=== PATIENT | male | born 1995 | race Caucasian/White ===

== ENCOUNTER → 2017-10-02 09:13 | Outpatient (CLI) | payer OTHER, SELFPAY ==
[2017-10-02 13:38] LABS: Free T4 (Free Thyroxine) 1.03 ng/dl (0.76-1.46); Thyroid Stimulating Hormone 5.08 uIU/ml (0.358-3.740)
== END ==
PROVIDERS: Visit Provider Physician Assistant
DX: E03.9 Hypothyroidism, unspecified (principal)
CPT/HCPCS: 36415; 84439; 84443

== ENCOUNTER → 2018-02-27 09:23 | Outpatient (CLI) | payer OTHER, SELFPAY ==
[2018-02-27 14:59] LABS: Thyroid Stimulating Hormone 0.98 uIU/ml (0.358-3.740)
== END ==
PROVIDERS: PCP Nurse Practitioner Family; Visit Provider Nurse Practitioner Family
DX: E03.9 Hypothyroidism, unspecified (principal)
CPT/HCPCS: 36415; 84443